=== PATIENT | female | born 1945 | race Caucasian/White ===

== ENCOUNTER 2016-04-28 08:26 | Day surgery (SDC) | payer OTHER ==
[2016-04-28] MEDS ORDERED: TETRACAINE 0.5% OPHTH 1 DOSE AFFEYE ONE ×2 (08:42→09:32)
[2016-04-28] MEDS ORDERED: ALPHAGAN-P OPHTH 1 DOSE AFFEYE ONE (08:45)
[2016-04-28 11:41] VITALS: BP 124/76
== END 2016-04-28 09:50 | disposition home or self-care (01) ==
LOC: SURG1 08:26
PROVIDERS: ATTEND Internal Medicine Gastroenterology
PROC: 08QC3ZZ Repair Right Iris, Percutaneous Approach (ICD-10-PCS; principal; 2016-04-28 11:00)
DX: H40.1111 Primary open-angle glaucoma, right eye, mild stage (principal)
CPT/HCPCS: 65855

== ENCOUNTER → 2016-07-01 | Outpatient (CLI) | payer OTHER ==
--- NOTE | 2016-07-02 13:25 | MG ---
HISTORY: SCREENING Comparison: Multiple priors dating back to December 04, 2008 FINDINGS: Bilateral CC and MLO projections of the right and left breast were obtained. Scattered fibroglandul ar tissue is seen to be present without significant interval change. No suspicious architectural di stortion, mass or clustered microcalcifications can be observed to suggest malignancy. No skin thic kening or nipple retraction is appreciated. No pathological lymphadenopathy can be identified. Larry ign-appearing calcifications are noted within the right and left breast. IMPRESSION: NO RADIOGRAPHIC EVIDENCE OF MALIGNANCY. ACR CATEGORY 2 - benign findings. FOLLOW-UP EXAM 1 YEAR. Diagnostic CAD was utilized and reviewed. * 0 (ZERO) - ASSESSMENT INCOMPLETE; ADDITIONAL IMAGING IS NEEDED. * 1/ (ONE) - NEGATIVE. * 2/II (TWO) - BENIGN FINDINGS. * 3/III (THREE) - PROBABLY BENIGN FINDING; SHORT INTERVAL FOLLOW-UP SUGGESTED. * 4/IV (FOUR) - SUSPICIOUS ABNORMALITY; BIOPSY SHOULD BE CONSIDERED. * 5/V (FIVE) - HIGHLY SUSPICIOUS OF MALIGNANCY; BIOPSY SHOULD BE PERFORMED. A NEGATIVE X-RAY REPORT SHOULD NOT DELAY BIOPSY IF A DOMINANT OR CLINICALLY SUSPICIOUS MASS IS PRESENT; 4 TO 8 PERCENT OF CANCERS ARE NOT IDENTIFIED BY X-RAY. A NEG ATIVE REPORT MAY REINFORCE THE CLINICAL IMPRESSION. ADENOSIS AND DENSE BREASTS MAY OBSCURE AN UNDER LYING NEOPLASM. Reported By:
== END ==
LOC: RAD 09:43
PROVIDERS: ATTEND Specialist
DX: Z12.31 Encounter for screening mammogram for malignant neoplasm of breast (principal); Z86.010 Personal history of colon polyps; R19.5 Other fecal abnormalities
CPT/HCPCS: 77067; 82270

== ENCOUNTER 2016-08-21 08:04 | Day surgery (SDC) | payer OTHER ==
[2016-08-21] MEDS ORDERED: D5 LR 1000 ML 1,000 ML IV ONE (08:11)
[2016-08-21] MEDS ORDERED: DIPRIVAN VIAL 20 ML ONE (09:22)
[2016-08-21 09:55] VITALS: BP 185/82
== END 2016-08-21 09:55 | disposition home or self-care (01) ==
LOC: SURG1 08:04
PROVIDERS: ATTEND Internal Medicine Gastroenterology
PROC: 0DJD8ZZ Inspection of Lower Intestinal Tract, Via Natural or Artificial Opening Endoscopic (ICD-10-PCS; principal; 2016-08-21 10:30)
DX: Z86.010 Personal history of colon polyps (principal); K92.2 Gastrointestinal hemorrhage, unspecified; K92.1 Melena; K57.30 Diverticulosis of large intestine without perforation or abscess without bleeding; K64.0 First degree hemorrhoids
CPT/HCPCS: A4217; J3490; J7120

== ENCOUNTER → 2017-01-14 | Outpatient (CLI) | payer OTHER ==
--- NOTE | 2017-01-15 09:04 | MRI ---
Indication: Back pain with left leg radiculopathy and hip pain . Exam: MRI lumbar spine without contrast. Technique: Routine multiplanar multisequence imaging was performed through the lumbar spine without c ontrast. Findings: The lumbar vertebra are well aligned. There is moderate disc space narrowing throughout wit h diffuse moderate disc desiccation. No fracture or subluxation is seen. The conus is normal. There a re mild to moderate central disc bulges at L1-2 and L3-4 causing [id number] anterior dural sac effacement. There is a small central disc bulge at L2-3 lateralizing to the right and centrally at L4 -5. There is a moderate extruded disc at L5-S1 lateralizing to the left causing mild anterolateral du ral sac effacement and moderately displacing the S1 nerve root posteriorly. There are moderate hypert rophic changes of the facets throughout with ligament flavum hypertrophy causing diffuse mild spinal stenosis. There is diffuse stranding and increased signal of the subcutaneous fat along the lower lum bar spine with no focal fluid collection or mass. The paravertebral soft tissues are unremarkable. Impression: Moderate extruded disc at L5-S1 lateralizing to the left and displacing the S1 nerve root. Moderate multilevel degenerative disc disease with no acute abnormality seen . Mild to moderate central disc bulges at L1-2, L2-3, L3-4, and L4-5. Moderate osteoarthritic changes of facets throughout causing diffuse mild spinal stenosis. Questionable mild edema or cellulitis in the subcutaneous fat along the lower lumbar spine , recommen d clinical follow-up. Reported By:
== END ==
LOC: RAD 12:19
PROVIDERS: ATTEND Internal Medicine
DX: M54.5 Low back pain (principal); M51.27 Other intervertebral disc displacement, lumbosacral region
CPT/HCPCS: 72148